=== PATIENT | female | born 1985 | race Caucasian/White ===

== ENCOUNTER 2024-06-11 06:21 | Day surgery (SDC) | payer OTHER, SELFPAY | END 2024-06-11 16:11 | disposition home or self-care (01) | LOC: GI 06:21 | PROVIDERS: ATTENDING PHYSICIAN Student in an Organized Health Care Education/Training Program | DX: Z12.11 Encounter for screening for malignant neoplasm of colon (principal); R59.0 Localized enlarged lymph nodes; K62.89 Other specified diseases of anus and rectum; K63.89 Other specified diseases of intestine; K62.1 Rectal polyp; D12.2 Benign neoplasm of ascending colon; K63.5 Polyp of colon; Z86.0101 Personal history of adenomatous and serrated colon polyps; Z80.0 Family history of malignant neoplasm of digestive organs; Z83.719 Family history of colon polyps, unspecified | CPT/HCPCS: 45380; 88305 ==